=== PATIENT | female | born 1985 | race Caucasian/White ===

== ENCOUNTER → 2018-08-11 | Outpatient (CLI) | payer BC ==
--- NOTE | 2018-08-11 12:30 | Diagnostic Imaging Report ---
PROCEDURE: US Non-ob pelvis comp/trans. TECHNIQUE: Multiple realtime grayscale images were obtained of the pelvis in various projections endovaginally. Transabdominal imaging was also performed. INDICATION: Back pain. FINDINGS: The uterus measures 8.6 x 5.4 x 3.8 cm. There is an IUD which appears to be appropriately centered in the endometrial canal. Endometrium is 2 mm in thickness. Right ovary measures 4.9 x 4.3 x 3.8 cm and the left ovary measures 3.1 x 1.9 x 2.2 cm. Right ovary does contain a simple appearing cyst measuring 4.2 x 3.6 x 3.4 cm. There is blood flow to both ovaries. No free fluid is seen. IMPRESSION: 1. IUD appears appropriately centered in the endometrial canal. 2. 4 cm right ovarian cyst. Dictated by: Dictated on workstation # [id number]
== END ==
LOC: RAD 11:02
PROVIDERS: ATTEND Nurse Practitioner
DX: T83.32XA Displacement of intrauterine contraceptive device, initial encounter (principal); N83.201 Unspecified ovarian cyst, right side; Z97.5 Presence of (intrauterine) contraceptive device
CPT/HCPCS: 76830; 76856

== ENCOUNTER 2022-03-06 05:31 | Outpatient (CLI) | payer BC ==
[~2022-03-06] VITALS: Ht 175.2 cm; Wt 135.4 kg
[2022-03-06] MEDS ORDERED: MULT-974 PO (11:10)
== END 2022-03-06 11:20 | disposition home or self-care (01) ==
LOC: PREOP 05:31
PROVIDERS: ATTEND Obstetrics & Gynecology
DX: Z01.818 Encounter for other preprocedural examination (principal)

== ENCOUNTER 2022-03-08 11:15 | Day surgery (SDC) | payer BC ==
[~2022-03-08] VITALS: Ht 172 cm; Wt 135.4 kg
[2022-03-08] VITALS (10 sets, daily range): BP systolic 103–124; BP diastolic 63–76
[~2022-03-08 11:15] MED LIST: MULT-974 PO
--- NOTE | 2022-03-08 11:50 | Progress Note-Pre Operative ---
Pre-Operative Progress Note Date of Available H&P: Mar 08, 2022 Date H&P Reviewed: Mar 08, 2022 Time H&P Reviewed: 12:35 History & Physical: H&P Reviewed, No changes noted Pre-Operative Diagnosis: Retained foreign body in uterus CHITRA CHAMPION MD Mar 08, 2022 11:50
--- NOTE | 2022-03-08 11:51 | Progress Note-Post Operative ---
Post-Operative Progess Note Surgeon (s)/Application Development Liaison (s) Surgeon CHITRA CHAMPION MD Application Development Liaison: None Pre-Operative Diagnosis Retained foreign body in uterus Post-Operative Diagnosis Same Procedure & Operative Findings Date of Procedure 03/08/22 Procedure Performed/Findings Hysteroscopy with removal of foreign body/IUD Anesthesia Type General Estimated Blood Loss Estimated blood loss (mL): Minimal Specimens/Packing Specimens Removed Retained IUD was disposed of nothing was sent to pathology CHITRA CHAMPION MD Mar 08, 2022 11:51
--- NOTE | 2022-03-08 11:55 | Discharge Inst-Surgical ---
Discharge Inst-Surgical Depart Medication/Instructions New, Converted or Re-Newed RX: Other Consults/Follow Up Patient Instructions: As directed Orders & Referrals Follow Up Appt: Call to make follow up appt. for patient in 2 weeks. Activity: as tolerated. Patient May use Tylenol [id number] pain medication As needed Diet: As tolerated shower or tub bathe as desired. Nothing per vagina (no tampons, douching, or intercoarse) for 2 weeks. Patient to return to the clinic as soon as possible for: Temperature greater than 101F, Severe Pain, Foul discharge from incision or vagina, Excessive Bleeding (more than a period). Activity Activity as Tolerated: No Diet Discharge Diet: No Restrictions CHITRA CHAMPION MD Mar 08, 2022 11:55
[2022-03-08] MEDS ORDERED: oxyCODONE/APAP 5/325MG (PERCOCET 5) TABLET PO PRN (12:00)
[2022-03-08] MEDS ORDERED: D5 LR IV SOLUTION 1,000 ML IV SCH (12:00)
[2022-03-08] MEDS ORDERED: ESTROGENS CONJ INJECTION 25 MG in WATER (STERILE) FOR INJECTION 5 ML IV ONE (12:00)
[2022-03-08] MEDS ORDERED: ONDANSETRON 4 MG/2 ML (SDV) Z0FRAN IVP PRN ×2 (12:00→14:15)
[2022-03-08] MEDS ORDERED: fentaNYL INJ 100 MCG/2 ML AMP IVP PRN (12:00)
[2022-03-08] MEDS ORDERED: KETOROLAC 30 MG/ML VIAL IVP ONE (12:00)
[2022-03-08 12:03] LABS: BASOPHILS # (AUTO) 0.1 10^3/uL (0.0-0.1); BASOPHILS % (AUTO) 1 % (0-10); EOSINOPHILS # (AUTO) 0.1 10^3/uL (0.0-0.3); EOSINOPHILS % (AUTO) 2 % (0-10); HEMATOCRIT 38 % (35-52); HEMOGLOBIN 12.9 g/dL (11.5-16.0); LYMPHOCYTES # (AUTO) 2.3 10^3/uL (1.0-4.0); LYMPHOCYTES % (AUTO) 36 % (12-44); MEAN CORPUSCULAR HEMOGLOBIN 30 pg (25-34); MEAN CORPUSCULAR HGB CONC 34 g/dL (32-36); MEAN CORPUSCULAR VOLUME 89 fL (80-99); MEAN PLATELET VOLUME 10.7 fL (9.0-12.2); MONOCYTES # (AUTO) 0.4 10^3/uL (0.0-1.0); MONOCYTES % (AUTO) 5 % (0-12); NEUTROPHILS # (AUTO) 3.6 10^3/uL (1.8-7.8); NEUTROPHILS % (AUTO) 56 % (42-75); PLATELET COUNT 246 10^3/uL (130-400); WHITE BLOOD COUNT 6.4 10^3/uL (4.3-11.0)
[2022-03-08] MEDS ORDERED: LACTATED RINGERS 1,000 ML IV PRN (12:15)
[2022-03-08] MEDS ORDERED: fentaNYL INJ 100 MCG/2 ML AMP ONE (12:18)
[2022-03-08] MEDS ORDERED: MIDAZOLAM 2 MG/2 ML (VERSED) VIAL ONE (12:18)
[2022-03-08] MEDS ORDERED: proPOfol 200 MG/20 ML (DIPRIVAN) VIAL IV ONE ×2 (13:05→13:06)
[2022-03-08] MEDS ORDERED: SUCCINYLCHOLINE INJ 100 MG/5 ML SYR/VIAL ONE (13:06)
[2022-03-08] MEDS ORDERED: ONDANSETRON 4 MG/2 ML (SDV) Z0FRAN ONE (13:06)
[2022-03-08] MEDS ORDERED: KETOROLAC 30 MG/ML VIAL ONE (13:30)
[2022-03-08] MEDS ORDERED: SEVOFLURANE (ULTANE) 15 ML INHAL SOLN ONE (13:31)
--- NOTE | 2022-03-08 14:03 | Anesthesia-General Post-Op ---
General Patient Condition Mental Status/LOC: Same as Preop Cardiovascular: Satisfactory Nausea/Vomiting: Absent Respiratory: Satisfactory Pain: Controlled Complications: Absent Post Op Complications Complications None Follow Up Care/Instructions Patient Instructions None needed. Anesthesia/Patient Condition Patient Condition Patient is doing well, no complaints, stable vital signs, no apparent adverse anesthesia problems. No complications reported per nursing. GÓMEZ TOMLIN CRNA Mar 08, 2022 14:03
[2022-03-08] MEDS ORDERED: fentaNYL INJ 100 MCG/2 ML AMP IVP ONE (14:15)
--- NOTE | 2022-03-08 15:16 | OPERATIVE REPORT ---
DATE OF SERVICE: 03/08/2022 PREOPERATIVE DIAGNOSIS: Retained foreign body/IUD. POSTOPERATIVE DIAGNOSIS: Retained foreign body/IUD. OPERATIVE PROCEDURE: Hysteroscopy with extraction of a Mirena IUD. OPERATIVE DESCRIPTION: With the patient in supine position under satisfactory general anesthesia, she was repositioned in dorsal lithotomy position in the [place] stirrups and prepped and draped in the usual fashion for vaginal surgery. Weighted speculum placed in posterior fornix of vagina, cervix exposed and grasped anteriorly with single tooth tenaculum. Uterus was sounded to 12 cm with uterine sound. The cervix was then serially dilated with Kahlil dilators to a #20 Kahlil and then a #9 Hegar dilator was the final step in dilation. Hysteroscope was introduced and using LR as a distending medium, the endometrial cavity was examined. The IUD was present, properly positioned in the endometrial cavity. The strings were actually above. The base of the string was grasped with a grasper and brought out through the cervix. The hysteroscope was removed. The clamp was placed on the IUD strings and the IUD was extracted without difficulty. The IUD was intact on removal. The hysteroscope was removed as was the tenaculum. There was no bleeding from the puncture site. There was no bleeding from the cervical os. The sponge and needle counts were correct. Blood loss was minimal. The patient was uneventfully awakened from her general anesthesia and transferred to recovery room in stable condition with plans for discharge home PAR. Job ID: [id number] DocumentID: [id number] Dictated Date: 03/08/2022 13:15:57 Croze Machine Operator Date: 03/08/2022 15:16:03 Dictated By: CHITRA CHAMPION MD
== END 2022-03-08 15:23 | disposition home or self-care (01) ==
LOC: SDC 11:15
PROVIDERS: ATTEND Obstetrics & Gynecology
DX: T19.3XXA Foreign body in uterus, initial encounter (principal); T83.39XA Other mechanical complication of intrauterine contraceptive device, initial encounter; E66.01 Morbid (severe) obesity due to excess calories; Z68.41 Body mass index [BMI] 40.0-44.9, adult
CPT/HCPCS: 36415; 84703; 85025; 87081